=== PATIENT | male | born 1960 | race African-American/Black ===

== ENCOUNTER 2016-12-15 08:57 | Emergency (ER) | payer OTHER ==
[~2016-12-15] VITALS: Ht 170.2 cm; Wt 105.0 kg
[~2016-12-15 08:57] MED LIST: HYDR25TA5 PO; LISI40TA PO; METF500T PO; METH750T PO; MOBI15TA PO; VENTAER INH
[2016-12-15 08:59] VITALS: BP 130/92; PULSE 79; RESP 15; TEMP 98.2; O2SAT 100
[2016-12-15] MEDS ORDERED: SIMV20TA PO (09:31)
[2016-12-15] MEDS ORDERED: IBUPROFEN 800 MG TAB PO ONE (10:15)
--- NOTE | 2016-12-15 10:15 | PD ---
HPI Chief Complaint: Injury Time Seen by Provider: 10:11 Travel History International Travel<30 days: No Contact w/Intl Traveler<30days: No Traveled to known affect area: No History of Present Illness HPI 56-year-old male presents emergency Department with complaint of ankle pain 2 days after twisting it while running. He denies paresthesias, loss of sensation , decreased range of motion, decreased strength to the affected extremity. Denies fever, vomiting. Has been ambulatory on the affected extremity. Has been icing and elevating it for symptom management. Symptoms are mild in severity. No known allergies. Has no other medical complaints. No other modifying factors or associated signs and symptoms. PFSH Past Medical History Arthritis: Yes Heart Rhythm Problems: No Cardiac Catheterization: No Cardiovascular Problems: No (DENIES) High Cholesterol: No Congestive Heart Failure: No Diabetes: Yes Patient Takes Glucophage: No Diminished Hearing: No Hypertension: Yes Respiratory: Yes Myocardial Infarction: No Tetanus Vaccination: > 5 Years ?: Not Past Surgical History Surgical History: No Previous Surgery Coronary Artery Bypass Graft: No Social History Alcohol Use: No (DENIES) Tobacco Use: No Substance Use: No Allergies-Medications (Allergen,Severity, Reaction): Coded Allergies: No Known Allergies (Verified , 12/15/16) Reported Meds & Prescriptions Reported Meds & Active Scripts Active Metformin (Metformin HCl) 500 Mg Tab 500 Mg PO BIDPC With meals Reported Simvastatin 20 Mg Tab 20 Mg PO DAILY Lisinopril 40 Mg Tab 40 Mg PO DAILY Hydrochlorothiazide 25 Mg Tab 25 Mg PO DAILY Ventolin Hfa 18 GM Inh (Albuterol Sulfate) 90 Mcg/Act Aer 2 Puff INH Q4-6H PRN Review of Systems Except as stated in HPI: all other systems reviewed are Neg Physical Exam Narrative GENERAL: Well-nourished, well-developed male patient, in no acute distress SKIN: Warm and dry. HEAD: Atraumatic. Normocephalic. EYES: Pupils equal and round. No scleral icterus. No injection or drainage. ENT: Mucosa pink and moist. Airway patent. NECK: Trachea midline. CARDIOVASCULAR: Regular rate. RESPIRATORY: No accessory muscle use. GASTROINTESTINAL: Rounded. MUSCULOSKELETAL: Right ankle with point tenderness to the lateral malleolar zone with palpation; tenderness on palpation to the posterior aspect; no obvious deformity; without erythema, edema, ecchymosis; with full range of motion. Right Lower extremity is supple and nontense with 2+ pedal pulse and sensory intact. No obvious deformities. No clubbing. No cyanosis. No edema. NEUROLOGICAL: Awake and alert. Oriented 3. No obvious cranial nerve deficits. Motor grossly within normal limits. Normal speech. PSYCHIATRIC: Appropriate mood and affect; insight and judgment normal. Data Data Last Documented VS Vital Signs Date Time Temp Pulse Resp B/P Pulse Ox O2 Delivery O2 Flow Rate FiO2 12/15/16 11:22 14 12/15/16 08:59 98.2 79 130/92 100 Orders Ankle, Complete ([id number]) (12/15/16 10:10) Ice/Cold Pack (12/15/16 10:10) Ibuprofen (Motrin) (12/15/16 10:15) Splint Or Brace Apply/Monitor (12/15/16 11:12) Crutches (12/15/16 11:12) MDM Medical Decision Making Medical Screen Exam Complete: Yes Emergency Medical Condition: Yes Medical Record Reviewed: Yes Differential Diagnosis Ankle injury, ankle sprain, ankle fracture Narrative Course 56-year-old male with right ankle injury. Ibuprofen administered in the ER. Ice pack provided. Right ankle x-ray ordered. 1114: Right ankle x-ray concludes:Mild soft tissue swelling. 2. No acute fracture or joint dislocation. 3. Heel spur I ordered crutches, ankle splint, Kane bandage for support and the patient declines at this time. Patient doesn't want any prescriptions for home. Instructed to follow-up with podiatry in regards to heel spur. Instructed patient to follow up with primary care provider. Patient verbalizes understanding and agreement with treatment plan. Patient is medically cleared and stable for discharge. Discussed reasons to return to the emergency department. Patient agrees with treatment plan. The patients vital signs are stable and the patient is stable for outpatient follow-up and treatment. Patient discharged home, stable and in no acute distress. Diagnosis Primary Impression: Ankle sprain Qualified Code: S93.401A - Sprain of right ankle, unspecified ligament, initial encounter Referrals: Primary Care Physician Patient Instructions: Ankle Sprain (ED), General Instructions Departure Forms: Tests/Procedures, Work Release Enter return to work date: Dec 18, 2016 Additional Instructions: Tylenol or ibuprofen as directed and as needed for pain and inflammation Rest, ice, compress, and elevate extremity to decrease pain and inflammation Ankle Brace for support Crutches for support Avoid aggravating activity; increase activity as tolerated Follow-up with primary care provider Return to the emergency department immediately with worsening of symptoms Med/Other Pt SpecificInfo: No Meds Exist/No RX given Disposition: 01 DISCHARGE HOME Condition: Stable Niya He Dec 15, 2016 10:14
--- NOTE | 2016-12-15 11:06 | RADRPT ---
EXAM DATE/TIME: 12/15/2016 10:44 [facility] COMPARISON: No previous studies available for comparison. INDICATIONS : Right ankle pain after jogging. MEDICAL HISTORY : None. SURGICAL HISTORY : None. ENCOUNTER: Initial ACUITY: 3 days PAIN SCORE: 8/10 LOCATION: Right ankle FINDINGS: Three view exam was performed of the right ankle. The bony structures are in normal alignment. No e vidence of fracture, dislocation. There is mild soft tissue swelling around the ankle. The ankle mor tise is intact. No radiopaque foreign bodies are seen. Bony mineralization is normal. There is a he el spur on the plantar surface of the calcaneus. CONCLUSION: 1. Mild soft tissue swelling. 2. No acute fracture or joint dislocation. 3. Heel spur. Jose C Rutledge MD on December 15, 2016 at 11:03 Board Certified Radiologist. This report was verified electronically.
[2016-12-15 11:22] VITALS: RESP 14
== END 2016-12-15 11:37 | disposition home or self-care (01) ==
LOC: NEPK 08:57
DX: S93.401A Sprain of unspecified ligament of right ankle, initial encounter (principal); M76.891 Other specified enthesopathies of right lower limb, excluding foot; M13.88 Other specified arthritis, other site; I10 Essential (primary) hypertension; Z79.899 Other long term (current) drug therapy; X50.1XXA Overexertion from prolonged static or awkward postures, initial encounter; Y93.02 Activity, running
CPT/HCPCS: 73610; 99283; E0113; L1906